=== PATIENT | female | born 1985 | race Caucasian/White ===

== ENCOUNTER 2020-07-15 18:16 | Emergency (ER) | payer OTHER, SELFPAY ==
--- NOTE | ~2020-07-15 | CT_ITS ---
EXAMINATION: CT brain wo con EXAM DATE: 07/15/2020 19:08 INDICATION: Right-sided paresthesia, face arms and legs. Temporary episode. TECHNIQUE: Spiral CT of the head was performed without contrast. Axial, coronal and sagittal images were reviewed. The dose-length product (DLP) for this examination was 605.33 mGy-cm. The exposure w as tailored according to patient size, and iterative reconstruction (ASIR) was used as additional dos e reduction technique. There is no prior study for comparison. FINDINGS: There is no acute intraparenchymal hemorrhage. No evidence of intraparenchymal brain mass lesion. No evidence of acute infarction. There is no mass effect or midline shift. The ventricles are normal in size. There are no extra-axial collections. There are no acute calvarial fractures. T he orbits are unremarkable. Soft tissue is unremarkable. The visualized sinuses and mastoid air denis ls are well aerated. IMPRESSION: 1. Normal head CT examination. Reviewed, dictated and finalized at location A.
[2020-07-15 18:30] VITALS: BP 128/85; PULSE 81; RESP 18; TEMP 36.2; O2SAT 100
--- NOTE | 2020-07-15 18:51 | ECG_ITS ---
Measurements Intervals [place] Rate: 79 P: 43 MN: 130 QRS: 1 QRSD: 90 T: 36 QT: 380 QTc: 437 Interpretive Statements SINUS RHYTHM BASELINE WANDER- I, II, AVR, AVL, AVF NORMAL ECG Electronically Signed On 07-16-2020 7:33:49 CDT by Naresh Pearl D.O.
--- NOTE | 2020-07-15 18:57 | ED.NEUROSD ---
HPI - Neuro Symptoms/Deficit General Chief Complaint: Neuro Symptoms/Deficit Stated Complaint: NUMBNESS/TINGLING TO R SIDE Time Seen by Provider: 07/15/20 18:35 Source: patient Mode of arrival: ambulatory Limitations: no limitations History of Present Illness HPI Narrative: Patient is a 35-year-old female complaining of sudden onset of right sided numbness that started approximately 2 hours ago, lasting for approximately 30 to 40 minutes which now resolved. Patient denies any speech or visual disturbance, weakness, unsteady gait or facial droop. Patient denies any chest pain, shortness of breath, abdominal pain, nausea vomiting or fever. Related Data Home Medications Medication Instructions Recorded Confirmed metformin mg PO 07/15/20 tobramycin-dexamethasone drp 07/15/20 Allergies Allergy/AdvReac Type Severity Reaction Status Date / Time azithromycin AdvReac Abdominal Verified 07/15/20 18:41 [From Zithromax Z-Nader] Pain minocycline AdvReac Fever Verified 07/15/20 18:41 Review of Systems Review of Systems: All systems reviewed & are unremarkable except as noted in HPI and below Constitutional: Constitutional: Denies body ache(s), Denies chills, Denies excessive sweating, Denies fatigue, Denies fever(s), Denies headache(s), Denies lethargy, Denies malaise, Denies weakness and Denies weight loss Eyes: Eyes: Denies blurry vision, Denies change in vision and Denies loss of vision ENT: Denies dizziness, Denies ear discharge, Denies headache(s), Denies lip swelling, Denies epistaxis, Denies nasal congestion, Denies neck pain, Denies throat swelling and Denies tongue swelling Cardiovascular: Cardiovascular: Denies chest pain, Denies chest pain at rest, Denies chest pain with activity, Denies diaphoresis, Denies rapid heart rate, Denies edema, Denies irregular heart rhythm, Denies lightheadedness, Denies palpitations, Denies dyspnea and Denies dyspnea on exertion Respiratory: Respiratory: Denies chest congestion, Denies cough, Denies hemoptysis, Denies dyspnea and Denies dyspnea on exertion Gastrointestinal: Gastrointestinal: Denies abdominal pain, Denies melena, Denies hematochezia, Denies diarrhea, Denies nausea, Denies vomiting and Denies hematemesis Musculoskeletal: Musculoskeletal: Denies abnormal gait, Denies deformity, Denies joint swelling, Denies limited range of motion, Denies neck pain and Denies numbness Neurologic: Denies Abnormal speech present, Denies abnormal gait, Denies confusion, Denies dizziness, Denies headache(s), Denies focal weakness, Denies loss of vision, Denies Other visual disturbances, Denies Sensory deficit (Neuro) and Denies weakness Psychiatric: Psychiatric: Denies confusion, Denies depression, Denies auditory hallucinations, Denies homicidal ideation and Denies suicidal ideation Endocrine: Endocrine: Denies cold intolerance, Denies excessive sweating, Denies fatigue, Denies heat intolerance and Denies palpitations Hematologic/Lymphatic: Hematologic/Lymphatic: Denies easy bleeding and Denies easy bruising Allergic/Immunologic: Allergic/Immunologic: Denies lip swelling, Denies throat swelling and Denies tongue swelling PMFSH Social History Social History Gender identity (if verbalized by the patient): Male Exam Const: General: cooperative, healthy appearing, comfortable, no acute distress, well developed, alert and awake; No confusion Orientation/consciousness: oriented to person, oriented to place, oriented to time, patient oriented x3 and No confusion Limitations: no limitations HENMT: Head: normal to inspection, normocephalic and atraumatic Ears: hearing grossly normal bilaterally, TM normal on the right and TM normal on the left General nose exam: Normal external nose present, Normal nares present and No nasal discharge present Face and sinus: normal facial exam Mouth: Yes Normal oral and palatal mucosa present, Yes lip normal, Yes tongue normal and Yes oropharynx normal Throat
[2020-07-15 19:00] LABS: Glucose Point of Care 92 (65-105)
--- NOTE | 2020-07-15 19:12 | PC.NURSE ---
Bedside report to CAMERON Baptiste, to continue care.
[2020-07-15 19:30] VITALS: BP 117/77; PULSE 75; RESP 21; O2SAT 99
[2020-07-15 20:30] VITALS: BP 104/77; PULSE 73; RESP 19; O2SAT 100
== END 2020-07-15 21:10 | disposition home or self-care (01) ==
PROVIDERS: Emergency Provider Emergency Medicine; PCP Internal Medicine
DX: R20.2 Paresthesia of skin (principal); Z79.84 Long term (current) use of oral hypoglycemic drugs
CPT/HCPCS: 70450; 82948; 93005; 99284

== ENCOUNTER 2021-11-02 10:45 | Emergency (ER) | payer OTHER, SELFPAY ==
--- NOTE | ~2021-11-02 | CT_ITS ---
EXAMINATION: CT brain wo con EXAM DATE: 11/02/2021 12:19 INDICATION: Fall, head injury, left-sided jaw pain. Hit back of head. TECHNIQUE: Spiral CT of the head was performed without contrast. Axial, coronal and sagittal images were reviewed. The dose-length product (DLP) for this examination was 605.33 mGy-cm. The exposure w as tailored according to patient size, and iterative reconstruction (ASIR) was used as additional dos e reduction technique. Comparison is made to prior examination from 07/15/2020. FINDINGS: There is no acute intraparenchymal hemorrhage. No evidence of intraparenchymal brain mass lesion. No evidence of acute infarction. There is no mass effect or midline shift. The ventricles are normal in size. There are no extra-axial collections. There are no acute calvarial fractures. T he orbits are unremarkable. Soft tissue is unremarkable. The visualized sinuses and mastoid air denis ls are well aerated. IMPRESSION: 1. No acute intracranial findings. Reviewed, dictated and finalized at location B. [facility]
--- NOTE | ~2021-11-02 | CT_ITS ---
EXAMINATION: CT facial & cervical spine wo DATE: 11/02/2021 12:20 INDICATION: Fall. Struck back of head. Left jaw pain. Facial and neck trauma. TECHNIQUE: Computed tomography (CT) of the facial bones and maxillofacial region was performed withou t intravenous contrast. Automated exposure control and iterative reconstruction technique were employ ed. Exam dose: 308.00 mGy-cm total exam DLP. COMPARISON: None. FINDINGS: The frontozygomatic sutures, orbital rims and gaxiola and the zygomatic arches and the remain pola of the facial bones are intact. The nasal plates and anterior maxillary spine are normal. No pawel ibular fracture or temporomandibular joint dislocation. The paranasal sinuses and mastoid air cells are normally developed and aerated. There is reversal cervical curvature which may be due to muscle spasm or positioning. There is dextro scoliosis of the cervical spine. C1 and C2 are normally aligned and the odontoid process is intact. No fracture or dislocation or lock ed facet or prevertebral soft tissue swelling is detected. Cervical interspaces are preserved. IMPRESSION: No evidence of facial fracture Reversal of cervical curvature which may be due to muscle spasm or positioning Dextroscoliosis of the cervical spine No fracture or dislocation or locked facet of the cervical spine Reviewed, dictated and finalized at Location A. Reviewed, dictated and finalized at location A. [employer]
[2021-11-02 10:53] VITALS: BP 121/80; PULSE 95; RESP 18; TEMP 36.9; O2SAT 100
--- NOTE | 2021-11-02 14:10 | ED.GENADULT ---
HPI - General Adult General Chief complaint: Fall Stated complaint: fall, head injury Time Seen by Provider: 11/02/21 11:35 Source: patient Mode of arrival: ambulatory Limitations: no limitations History of Present Illness HPI narrative: Patient is a 36-year-old female with chief complaint of slipping on the ice prior to arrival and striking the posterior aspect of her head. Patient reports pain to the posterior aspect of her head neck and the left side of her jaw. Patient denies loss of consciousness. She denies changes in vision or hearing. She does report having a headache. She reports nausea without vomiting. She reports that how she struck her head that there may be some injury or fracture to her jaw. Related Data Home Medications Medication Instructions Recorded Confirmed metformin mg PO 11/02/21 11/02/21 Allergies Allergy/AdvReac Type Severity Reaction Status Date / Time azithromycin AdvReac Abdominal Verified 11/02/21 11:27 [From Zithromax Z-Nader] Pain minocycline AdvReac Fever Verified 11/02/21 11:27 Review of Systems Review of Systems: CONSTITUTIONAL: Denies fever, chills, or sweats. EYES: Denies visual changes, redness, or discharge. ENT: Denies rhinorrhea, congestion, sore throat, or otalgia. CARDIOVASCULAR: Denies chest pain, palpitations, or edema. RESPIRATORY: Denies cough or dyspnea. GASTROINTESTINAL: Denies abdominal pain, nausea, vomiting, or diarrhea. GENITOURINARY: Denies dysuria or hematuria. SKIN: Denies rash or itching. MUSCULOSKELETAL: Reports neck and jaw pain denies back pain, joint pain, or myalgia. NEUROLOGIC: Reports headache,Denies numbness, dizziness, or weakness. PSYCHIATRIC: Denies anxiety or depression. [facility] Social History Social History Gender identity (if verbalized by the patient): Male Exam Narrative: GENERAL: Well-appearing, well-nourished, and in no acute distress. HEAD: Normocephalic, atraumatic. EYES: PERRLA and EOMI. ENT: Nares clear, no rhinorrhea or epistaxis. Mucous membranes moist. Oropharynx without tonsillar hypertrophy exudate or other lesions. Bilateral TMs pearly daniel nonbulging. No hemotympanum. NECK: Supple. Diffuse tenderness to posterior aspect of head and neck. spasming noted to left paracervical muscle. CHEST: Clear to auscultation. No respiratory distress. No wheezes rales or rhonchi HEART: Regular rate and rhythm. EXTREMITIES: Normal range of motion. No edema. SKIN: Warm, dry, no rash. NEURO: No focal deficits. Alert and oriented x3. Gait steady. PSYCH: Normal mood and affect. Course Vital Signs Vital signs: Vital Signs Temperature 98.5 F 11/02/21 10:53 Pulse Rate 95 11/02/21 10:53 Respiratory Rate 18 11/02/21 10:53 Blood Pressure 121/80 11/02/21 10:53 Pulse Oximetry 100 11/02/21 10:53 Temperature 98.5 F 11/02/21 10:53 Pulse Rate 84 11/02/21 14:50 Respiratory Rate 15 11/02/21 14:50 Blood Pressure 128/64 11/02/21 14:50 Pulse Oximetry 99 11/02/21 14:50 Medical Decision Making MDM Narrative Medical decision making narrative: Patient test negative. Patient given Toradol injection for pain control. Patient instructed on ER precautions and the need to follow-up with primary care. Patient instructed to return to emergency department should she develop any neurological deficits or emergent symptoms. Patient's head CT and neck CT were negative for any acute injury. Patient is ready to be discharged home at this time. Differential Diagnosis Differential Diagnosis: Fracture, sprain, strain, CVA, skull fracture, contusion, abrasion Vital Signs Vital Signs: Vital Signs Temperature 98.5 F 11/02/21 10:53 Pulse Rate 95 11/02/21 10:53 Respiratory Rate 18 11/02/21 10:53 Blood Pressure 121/80 11/02/21 10:53 Pulse Oximetry 100 11/02/21 10:53 Temperature 98.5 F 11/02/21 10:53 Pulse Rate 84 11/02/21 14:50 Respiratory Rate 15 11/02/21 14:50 Blood Pressure 128/64
[2021-11-02] MEDS: KETOROLAC (*BKC) 60 MG/2 ML VIAL IM (14:14)
[2021-11-02 14:50] VITALS: BP 128/64; PULSE 84; RESP 15; O2SAT 99
== END 2021-11-02 14:53 | disposition home or self-care (01) ==
PROVIDERS: Emergency Provider Emergency Medicine; PCP Internal Medicine
DX: S09.90XA Unspecified injury of head, initial encounter (principal); M62.838 Other muscle spasm; R68.84 Jaw pain; W00.0XXA Fall on same level due to ice and snow, initial encounter
CPT/HCPCS: 70450; 70486; 72125; 81025; 96372; 99284; J1885

== ENCOUNTER 2022-08-24 15:22 | Emergency (ER) | payer OTHER, SELFPAY ==
--- NOTE | 2022-08-24 15:27 | ED.EAR ---
HPI - Ear Problem General Chief complaint: Ear Stated complaint: rt ear throbbing Time Seen by Provider: 08/24/22 15:25 Source: patient Mode of arrival: ambulatory Limitations: no limitations History of Present Illness HPI Narrative: Ms. Matthews is a 37-year-old female patient presenting to clinic today with complaints of right ear pain. She reports she saw her OBGYN today as she is 16 weeks and they recommend she be seen in [facility] for right ear pain. Related Data Home Medications Medication Instructions Recorded Confirmed metformin 500 mg tablet,extended 50 mg PO DAILY 11/02/21 08/24/22 release 24 hr calcium citrate 200 mg 1 tablet PO QID 07/25/22 08/24/22 calcium-vitamin D3 6.25 mcg (250 unit) tablet (Citracal-D3 Petites) cholecalciferol (vitamin D3) 125 125 mcg PO DAILY 07/25/22 08/24/22 mcg (5,000 unit) capsule clindamycin phosphate 1 % topical 1 applic topical DAILY 07/25/22 08/24/22 gel loteprednol etabonate 0.2 % eye 1 drp EACH EYE QID 07/25/22 08/24/22 drops,suspension (Alrex) prenat.vits,anne,bdr-bkgx-pfssw 1 tablet PO DAILY 07/25/22 08/24/22 progesterone micronized 100 mg 1 insert vaginal BID 07/25/22 08/24/22 vaginal insert vitamin B12 500 mcg-folic acid 400 1 tablet PO DAILY 07/25/22 08/24/22 mcg tablet Allergies Allergy/AdvReac Type Severity Reaction Status Date / Time azithromycin AdvReac Abdominal Verified 08/24/22 15:38 [From Zithromax Z-Nader] Pain minocycline AdvReac Fever Verified 08/24/22 15:38 Review of Systems Review of Systems: Pertinent positives per HPI. Patient denies any fever, chills, rash, headache, visual changes, dizziness, cough, shortness of breath, chest pain, palpitations, nausea, vomiting, diarrhea, constipation, abdominal pain, or any urinary issues. 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 There is no relevant family history pertinent to the patient complaint. Exam Narrative: General: Well-developed, well nourished, in no apparent distress Head: Normocephalic, atraumatic Eyes: Pupils equally round and reactive to light bilaterally, EOM intact, sclera and conjunctive clear, no discharge, lids normal Ears: Right TM intact, mild bulging, dull, opaque, left TM intact and opaque, ear canals clear, no drainage, grossly hearing normal. Nose: Nares patent, clear nasal discharge, no inflammation, no sinus tenderness. Mouth: Oral pharynx without lesions or masses, good dentition, MMM. Neck: Supple, trachea midline, no enlargement of anterior or posterior cervical nodes, no thyroid masses or goiter palpable. Cardio: Regular rate and rhythm, s1 and s2 normal, no murmur appreciated. Resp: Clear to auscultation bilaterally, no rhonchi, rales, wheezing or rubs Course Course Emergency Course: Portions of this record may have been created with voice recognition software. Level of Care: [facility] Visit Vital Signs Vital signs: Vital Signs Temperature 36.8 C 08/24/22 15:39 Pulse Rate 81 08/24/22 15:39 Respiratory Rate 16 12
[2022-08-24 15:39] VITALS: BP 113/80; PULSE 81; RESP 16; TEMP 36.8; O2SAT 100
== END 2022-08-24 16:04 | disposition home or self-care (01) ==
PROVIDERS: Emergency Provider Nurse Practitioner Family; PCP Family Medicine
DX: O26.892 Other specified pregnancy related conditions, second trimester (principal); H69.91 Unspecified Eustachian tube disorder, right ear; Z3A.16 16 weeks gestation of pregnancy
CPT/HCPCS: 99213; G0463

== ENCOUNTER 2023-09-06 00:17 | Day surgery (SDC) | payer OTHER, SELFPAY ==
[2023-09-04 11:46] VITALS: BMI 30.5
--- NOTE | 2023-09-04 11:54 | PC.NURSE ---
Report to the Outpatient Waiting Room, entrance under the green pavilion located off [facility], at time 1000 on date 09/06/23. Planned Procedure Time: 1200. Time changes happen often and if your time is changed the preop area will call you the afternoon before. - You and your visitor will be asked to self-screen and do not enter if you have any COVID symptoms. - A mask is optional within the hospital at this time. Patients may have clear liquids (water, carbonated beverages, clear teas, apple juice) until 3 hours prior to surgery with a maximum of 20 ounces. - No food from midnight until time of surgery Take the following medications with a SIP of water the morning of surgery: EYE DROPS DO NOT STOP ANY OF YOUR OTHER PRESCRIPTION MEDICATIONS PRIOR TO SURGERY ?EXCEPT THE FOLLOWING Medications to discontinue per physician: VITAMINS/SUPPLEMENTS Date to take last dose: NO MORE UNTIL AFTER SURGERY Please no make-up, nail belarusian, hairspray, perfume, deodorant, or body powder the day of surgery. No jewelry (including any body piercings) or valuables the day of surgery, leave them at home. Please take a shower or bath the night before, or the morning of, surgery with an antibacterial soap. Wear comfortable, loose fitting clothing. - Jewelry must be removed prior to entering the operating room. Rings and piercings that are not removed may be cut off. - The hospital will not accept responsibility for valuables. - Please leave all valuables, including medications, at home the day of surgery. If you are going home after surgery, a licensed sprinkler truck driver must drive you home. - NO public transportation without another adult if you receive anesthesia. - We recommend that an adult stay with you for 24 hours following discharge. - We also recommend that you do not drive, make important decision, drink alcoholic beverages, or take any drugs that were not prescribed by your health care provider for at least 24 hours after your discharge time. Follow any additional instructions given to you from your surgeon. If you or anyone in your household have experienced Covid symptoms in the past week, please notify your surgeon or the nurse liaison at the phone number below for possible testing. Telephone instructions given to PT - ANCA FARIA and asked if any additional questions and then verbalized understanding. Patient advised to call surgeon office or pre surgery nurse liaison [phone] if any additional questions.
[2023-09-06] VITALS (10 sets, daily range): BP systolic 101–130; BP diastolic 61–88; PULSE 80–100; RESP 12–18; TEMP 36.9; O2SAT 99–100
[2023-09-06] MEDS: ACETAMINOPHEN 500 MG TABLET 1000 MG PO (10:20)
--- NOTE | 2023-09-06 10:24 | WPDANESEPPF ---
Anes - Initial Pre Proc Eval Procedure: Operation Date: 09/06/23 12:00 Proposed Procedures p Rectal Exam Under Anesthesia, Lateral Internal Sphincterotomy - Sampson Escobar DO Date/Time: 09/06/23 10:24 Surgeon: Sampson Escobar DO Pre Op Diagnosis: Anal Fissure Patient Data Age: 38 Gender: F Height: 1.7 m Weight: 88.5 kg Allergies Allergy/AdvReac Type Severity Reaction Status Date / Time azithromycin AdvReac Abdominal Verified 09/04/23 11:43 [From Zithromax Z-Nader] Pain minocycline AdvReac Fever Verified 09/04/23 11:43 Home Medications Medication Instructions Recorded Confirmed Type calcium citrate 200 mg 1 tablet PO QID 07/25/22 09/04/23 History calcium-vitamin D3 6.25 mcg (250 unit) tablet (Citracal-D3 Petites) cholecalciferol (vitamin D3) 125 125 mcg PO DAILY 07/25/22 09/04/23 History mcg (5,000 unit) capsule clindamycin phosphate 1 % topical 1 applic topical DAILY 07/25/22 09/04/23 History gel loteprednol etabonate 0.2 % eye 1 drp EACH EYE QID 07/25/22 09/04/23 History drops,suspension (Alrex) multivitamin 1 tablet PO DAILY 09/04/23 09/04/23 History polyethylene glycol 3350 17 17 g PO DAILY 09/04/23 09/04/23 History gram/dose oral powder (Miralax) psyllium husk-calcium 1 gram-60 mg 1 cap PO DAILY 09/04/23 09/04/23 History capsule (Metamucil Plus Calcium) Patient hx anesthesia problems: none Family hx anesthesia problems: none Results Review: All pre-operative results and documents have been reviewed as part of the pre-operative evaluation. 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 Gender identity (if verbalized by the patient): Female Spiritual care concerns: No Agree to blood products: Yes Anes - Eval Final PreProcedure Day of Procedure 09/06/23 10:24 Patient weight: overweight Heart: regular rate and rhythm Lungs: clear to auscultation Airway: Mallampati scale class II Neurological: alert and oriented Last oral intake: >/= 8 hours ASA classification: II Emergent: no Anesthetic plan: proceed Anesthesia type and monitoring: general GIVS and standard monitoring Results Review: All pre-operative results and documents have been reviewed as part of the pre-operative evaluation. Informed Consent: The patient's anesthetic plan and its attendant risks and benefits were discussed with the patient/family/POA. Questions were solicited and answers provided to the satisfaction of the patient/family/POA.
[2023-09-06] MEDS: LACTATED RINGERS 1,000 ML 30 ML IV CONT (10:30)
[2023-09-06] MEDS: KETOROLAC 15 MG/ML VIAL (*BKC) IV PUSH (10:34)
[2023-09-06] MEDS: SCOPOLAMINE 1.5 MG PATCH TRANSDERM (10:42)
--- NOTE | 2023-09-06 11:12 | WPDHPUPDATE1 ---
History and Physical Update Update Date/Time: 09/06/23 11:12 History and Physical has been reviewed, including an updated exam of the patient. There are NO changes in the patient's condition. Risks, benefits, and alternatives have been discussed and questions answered. Patient agrees to proceed with procedure.
[2023-09-06] MEDS: ceFAZolin 2 GM/D5W 50 ML 2 GM/50 ML BAG IVPB (11:14)
[2023-09-06] MEDS: BUPivacaine HCL 0.5% PF 30 ML VIAL INFILTRATE (11:45)
--- NOTE | 2023-09-06 11:56 | PM.IMHP ---
H&P: HPI History of Present Illness Date/Time: 09/06/23 11:56 Chief Complaint: Anal fissure Narrative: This is a 38-year-old woman who presents for anal sphincterotomy. She has a history of anal fissure and this has not improved with medical treatment. She denies any changes since last seen in the office. Review of Systems Review of Systems: All systems reviewed & are unremarkable except as noted in HPI and below Constitutional: Constitutional: Denies chills, Denies fever(s), Denies headache(s) and Denies weight loss Eyes: Eyes: Denies change in vision ENT: Denies dizziness, Denies headache(s), Denies neck mass and Denies throat swelling Cardiovascular: Cardiovascular: Denies chest pain, Denies lightheadedness and Denies dyspnea Respiratory: Respiratory: Denies cough, Denies dyspnea and Denies wheezing Gastrointestinal: Gastrointestinal: Denies abdominal pain, Denies change in bowel habits, Denies nausea and Denies vomiting Genitourinary: Genitourinary: Denies hematuria and Denies dysuria Musculoskeletal: Musculoskeletal: Reports as per HPI Integumentary/Breasts: Skin/Breast: Reports as per HPI Neurologic: Denies dizziness and Denies headache(s) Allergic/Immunologic: Allergic/Immunologic: Denies throat swelling and Denies wheezing PMF Past Medical History Medical History Anxiety Surgical History Surgical History H/O knee surgery 2005 Family History Family History Mother Asthma Sibling Asthma Father Hypertension Grandparent Cancer Eye cancer Other Breast cancer Other CPVT (catecholaminergic polymorphic ventricular tachycardia) Other Diabetes mellitus Social History Social History Smoking status: Never smoker Alcohol intake: never Substance use: never Substance use type: does not use Living arrangements: with family 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 Gender identity (if verbalized by the patient): Female Spiritual care concerns: No Agree to blood products: Yes Meds Home Medications and Allergies Home Medications Medication Instructions Recorded Confirmed Type calcium citrate 200 mg 1 tablet PO QID 07/25/22 09/04/23 History calcium-vitamin D3 6.25 mcg (250 unit) tablet (Citracal-D3 Petites) cholecalciferol (vitamin D3) 125 125 mcg PO DAILY 07/25/22 09/04/23 History mcg (5,000 unit) capsule clindamycin phosphate 1 % topical 1 applic topical DAILY 07/25/22 09/04/23 History gel loteprednol etabonate 0.2 % eye 1 drp EACH EYE QID 07/25/22 09/04/23 History drops,suspension (Alrex) multivitamin 1 tablet PO DAILY 09/04/23 09/04/23 History polyethylene glycol 3350 17 17 g PO DAILY 09/04/23 09/04/23 History gram/dose oral powder (Miralax) psyllium husk-calcium 1 gram-60 mg 1 cap PO DAILY 09/04/23 09/04/23 History capsule (Metamucil Plus Calcium) hydrocodone 5 mg-acetaminophen 325 1 tablet PO Q4H PRN pain #10 tabs 09/06/23 Rx mg tablet Allergies Allergy/AdvReac Type Severity Reaction Status Date / Time azithromycin AdvReac Abdominal Verified 09/06/23 10:37 [From Zithromax Z-Nader] Pain minocycline AdvReac Fever Verified 09/06/23 10:37 Vital Signs Vital Signs - 24 hr 09/06/23 10:37 Temperature 36.9 C Pulse Rate 89 Respiratory Rate 16 Blood Pressure 108/81 Pulse Oximetry 99 Oxygen Delivery Room Air Exam Const: General: no acute distress and alert Orientation/consciousness: patient oriented x3 HENMT: Head: normocephalic and atraumatic Ears: hearing grossly normal bilaterally Face/Nose/Sinus: Normal nares present Mouth: Yes Normal oral and palatal mucosa present Eyes: Periorbital: periorbital findings normal Sclera: sclerae normal EOM: EOMs
--- NOTE | 2023-09-06 11:57 | W.PM.PROC2 ---
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 She had been experiencing rectal pain with bowel movements and blood when wiping for about the past 3 months or so. She does struggle with constipation, but has been taking MiraLax to help with this. She was found to have an anal fissure on physical exam. She was given a prescription for nifedipine ointment which helped temporarily, but is not completely resolved. Discussions were made with the patient about treatment options and decision was made to proceed with rectal exam under anesthesia with lateral internal sphincterotomy. Findings Rectal exam under anesthesia was performed. The patient was found to have a posterior midline chronic anal fissure. No other anorectal abnormalities were identified. A left lateral internal sphincterotomy was performed up to the level of the fissure. This did provide relaxation of the sphincter muscle to hopefully help the fissure heal. Description of Procedure Procedure as well as risks, benefits, and alternatives were discussed with the patient. Written consent was obtained and placed in chart prior to procedure. Patient was brought back to surgical suite. She was placed supine on her hospital stretcher. Time-out was done to confirm patient and procedure. She was then intubated by the anesthesia department. She was then repositioned to prone destin-knife position on the operating table. Her perirectal area was prepped and draped in sterile fashion using Betadine prep. Digital rectal exam was initially performed. 0.5% bupivacaine with epinephrine was then infiltrated locally around the perianal region. A Hill-Shanks anoscope was then inserted in the entire anal rectal canal was carefully inspected. A Fansler anoscope was then inserted and the left lateral intersphincteric groove was carefully palpated. An incision was made over the internal sphincter muscle using a 15 blade scalpel. Electrocautery was used for hemostasis. The internal sphincter muscle fibers were then carefully isolated using a curved hemostat. Sphincterotomy was then performed using electrocautery. This allowed relaxation of the sphincter muscle up to the level of the fissure. The incision was then irrigated with sterile saline and then the anoderm and anal mucosa was closed using 3-0 chromic simple interrupted sutures. The fissure was then inspected. There was some chronic granulation tissue. This was cauterized to help with healing. No other abnormalities were noted. Xeroform gauze was then applied and the anoscope was removed. Fluff gauze, and mesh underwear were then applied. The patient was then awakened from anesthesia, extubated, and transferred to recovery. Estimated Blood Loss 5 Complications No immediate complications Condition Stable Disposition Same day [facility] Billing Surgery - Charge Forward: Surgery Billing
== END 2023-09-06 14:27 | disposition home or self-care (01) ==
PROVIDERS: PCP Family Medicine; Visit Provider Surgery
PROC: (CPT 46080; principal; 2023-09-06 12:00)
DX: K60.1 Chronic anal fissure (principal)
CPT/HCPCS: 46080; A9270; J0330; J0690; J1100; J1885; J2250; J2405; J2704; J3010; J7120